=== PATIENT | female | born 1985 | race Caucasian/White ===

== ENCOUNTER 2017-02-07 18:30 | Outpatient (CLI) | payer OTHER | END 2017-02-07 18:31 | disposition critical access hospital (66) | LOC: EMS 18:30 | PROVIDERS: ATTEND Surgery | DX: M54.9 Dorsalgia, unspecified (principal); V43.52XA Car driver injured in collision with other type car in traffic accident, initial encounter; Y92.410 Unspecified street and highway as the place of occurrence of the external cause | CPT/HCPCS: A0425; A0429 ==

== ENCOUNTER 2017-02-07 18:55 | Emergency (ER) | payer OTHER ==
[2017-02-07] MEDS ORDERED: SODIUM CHLORIDE 0.9% 1,000 ML IV ONE ×2 (19:02→22:07)
[2017-02-07] MEDS ORDERED: ONDANSETRON 4 MG/2 ML VIAL IVP STA ×2 (19:02→20:04)
[2017-02-07] MEDS ORDERED: HYDROmorphone 1 MG/ML SYRINGE IVP STA (19:02)
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
[2017-02-07] MEDS ORDERED: HYDROmorphone 1 MG/ML SYRINGE ONE (19:08)
[2017-02-07] MEDS ORDERED: ONDANSETRON 4 MG/2 ML VIAL ONE ×2 (19:08→20:02)
[2017-02-07 19:28] LABS: BASOPHILS # (AUTO) 0.1 10^3/uL (0.0-0.1); BASOPHILS % (AUTO) 0.6 %; EOSINOPHILS # (AUTO) 0.1 10^3/uL (0.0-0.7); HCT - HEMATOCRIT 39.2 % (37.0-47.0); LYMPHOCYTES # (AUTO) 3.1 10^3/uL (1.5-3.5); LYMPHOCYTES % (AUTO) 34.5 %; MEAN CORPUSCULAR HEMOGLOBIN 29.8 pg (27.0-31.0); MEAN CORPUSCULAR HGB CONC 33.2 g/dL (32.0-36.0); MEAN CORPUSCULAR VOLUME 89.9 fL (81.0-99.0); MEAN PLATELET VOLUME 9.7 fL (7.9-10.8); MONOCYTES # (AUTO) 0.7 10^3/uL (0.0-1.0); NEUTROPHILS # (AUTO) 5.1 10^3/uL (1.5-6.6); NEUTROPHILS % (AUTO) 55.9 %; RED BLOOD COUNT 4.36 10^6/uL (4.20-5.40); RED CELL DISTRIBUTION WIDTH 13.9 % (12.0-15.0); UNCORRECTED WHITE BLOOD COUNT 9.1 x10^3/uL; WHITE BLOOD COUNT 9.1 x10^3/uL (4.8-10.8)
[2017-02-07 19:46] LABS: ALBUMIN/GLOBULIN RATIO 1.2 (1.0-2.2); BILIRUBIN,TOTAL 0.5 mg/dL (0.2-1.0); CALCIUM 9.3 mg/dL (8.5-10.3); CREATININE 0.6 mg/dL (0.4-1.0); POTASSIUM 3.4 mmol/L (3.5-5.0); TOTAL PROTEIN 8.1 g/dL (6.7-8.2)
[2017-02-07] MEDS ORDERED: PROMETHAZINE INJ 25 MG in SODIUM CHLORIDE 0.9% 50 ML IV STA (20:27)
[2017-02-07] MEDS ORDERED: PROMETHAZINE 25 MG/1 ML VIAL ONE (20:27)
[2017-02-07] MEDS ORDERED: IOPAMIDOL-300 100 ML VIAL IVP ONE (20:41)
--- NOTE | 2017-02-07 21:08 | CT Preliminary Report ---
Exam: CT Cervical Spine W/O IMPRESSION: Normal cervical spine CT. [facility] SITE ID: [id number]
--- NOTE | 2017-02-07 21:10 | CT Preliminary Report ---
Exam: CT Head W/O IMPRESSION: Unremarkable noncontrast head CT. [facility] SITE ID: [id number]
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
--- NOTE | 2017-02-07 21:17 | CT Preliminary Report ---
Exam: CT Chest W/ IMPRESSION: Normal chest CT. [facility] SITE ID: [id number]
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
--- NOTE | 2017-02-07 21:23 | CT Preliminary Report ---
Exam: CT Abdomen/Pelvis W/ IMPRESSION: Normal abdomen and pelvis CT. [facility] SITE ID: [id number]
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
[2017-02-07] MEDS ORDERED: HYDROcod/ACET 5/325 Prepack 6 PO STA (21:35)
[2017-02-07] MEDS ORDERED: HYDROcod/ACET 5/325 Prepack 6 PO ONE (21:37)
[2017-02-07 22:45] VITALS: BP 108/63
== END 2017-02-07 23:03 | disposition home or self-care (01) ==
LOC: EDUNIT# → ED 18:55
DX: S09.90XA Unspecified injury of head, initial encounter (principal); S19.9XXA Unspecified injury of neck, initial encounter; S29.9XXA Unspecified injury of thorax, initial encounter; V43.52XA Car driver injured in collision with other type car in traffic accident, initial encounter; Y92.488 Other paved roadways as the place of occurrence of the external cause
CPT/HCPCS: 36415; 70450; 71260; 72125; 74177; 80053; 83690; 84703; 85025; 96374; 96375; 96376; 99284; J1170; Q9967

== ENCOUNTER 2017-04-08 14:25 | Outpatient (CLI) | payer OTHER ==
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
== END 2017-04-08 14:26 | disposition home or self-care (01) ==
LOC: DI 14:25
DX: M54.42 Lumbago with sciatica, left side (principal)
CPT/HCPCS: 72148

== ENCOUNTER 2023-03-15 12:09 | Outpatient (CLI) | payer OTHER | END 2023-03-15 23:59 | disposition EMS.NT | LOC: EMS 12:09 | DX: T20.16XA Burn of first degree of forehead and cheek, initial encounter (principal); T59.811A Toxic effect of smoke, accidental (unintentional), initial encounter; R09.89 Other specified symptoms and signs involving the circulatory and respiratory systems; X08.8XXA Exposure to other specified smoke, fire and flames, initial encounter; Y92.71 Barn as the place of occurrence of the external cause; Y99.0 Civilian activity done for income or pay ==

== ENCOUNTER 2023-03-21 07:01 | Emergency (ER) | payer SELFPAY ==
[2023-03-21 07:08] VITALS: BP 116/99; O2SAT 100
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
== END 2023-03-21 07:55 | disposition home or self-care (01) ==
LOC: ED 07:01
DX: R05.1 Acute cough (principal); T59.811A Toxic effect of smoke, accidental (unintentional), initial encounter
CPT/HCPCS: 99282